=== PATIENT | male | born 1970 | race Caucasian/White ===

== ENCOUNTER 2016-10-06 20:03 | Emergency (ER) | payer OTHER ==
[2016-10-06 20:07] VITALS: BP 104/41; PULSE 61; RESP 18; O2SAT 99
--- NOTE | 2016-10-06 21:16 | ED.REPORT ---
HPI-Back Pain 40 and Over Date of Service October 06, 2016 ED Provider: Patient is a 46 year old male who presents to [facility] ED via EMS accompanied by his mother and son c/o sudden onset of lower back pain onset 2 hours ago. Patient states he has been working on his motorcycle tonight and was pushing it when he felt cramping left sided lower lumbar back pain. He describes pain as severe at that time, 10/10, without radiation. He went home and waited for about half hour but pain did not subside so his mother called 911. Patient states he had never had pain like this before. He denies numbness, weakness, loss of sensation, nausea, vomiting, urinary retention, saddle paresthesia, loss of bowel function. His current pain is 2/10. Nursing Notes Stated Complaint: BACK PAIN Chief Complaint: Back Pain or Injury Nursing Notes Reviewed: Yes Allergies: Coded Allergies: amoxicillin (Verified Allergy, Severe, Elevated ALT,ASC and rash, 08/20/14) Scheduled PRN Naproxen (Naproxen) 500 Mg Tab 500 MG PO BID PRN PRN For Pain oxyCODONE-Acetaminophen 5-325 mg (oxyCODONE-Acetaminophen 5-325 mg) 1 Each Tablet 1 TAB PO Q6H PRN PRN For Pain General Time Seen by MD: 21:16 Chief Complaint Back pain, Muscle spasm Hx Obtained From: Patient Arrived By: Ambulance Sudden in Onset?: Yes Onset Occurred: 1 - 4 hours ago Symptom Duration: Intermittent Caused by: Bending Location: : Flank left Quality: Cramping Radiation: : Does not radiate Severity: Current: Pain level 2 out of 10 (during physical exam) Severity: Maximum: Pain level 10 out of 10 (at onset) Recent Healthcare: No recent doctor visit Past Medical History PTSD Past Medical History PTSD Anxiety Past Surgical History hand surgery Smoking History Current Every Day Smoker Social History Drug Use: Meth (once, 3 days ago) Other Social History: Good social support, Lives with parents (mother), Lives with children (son) Occupation lives with . Ambulatory Status Independent Review of Systems Basic Review of Systems Eyes: Vision NL ENT: Hearing NL Constitutional: Denies: Lethargy, Malaise, Weakness - generalized Respiratory: Denies: Dyspnea on exertion, Wheezing Cardiovascular: Denies: Chest pain, Edema, Syncope GI: Denies: Constipation, Diarrhea, Nausea, Vomiting Male: Reports Flank pain (Left), Denies Dysuria, Denies Incontinence, Denies Urinary frequency, Denies Urinary urgency, Denies Urination decreased, Denies Urination increased Musculoskeletal: Reports: Back pain (Left lower lumbar area), Lumbar pain (left ), Denies: Extremity pain, Extremity swelling, Joint pain, Joint swelling, Myalgia, Neck pain, Thoracic pain Neurologic: Denies: Abnormal movement, Bladder dysfunction, Bowel dysfunction, Change LOC, Confusion, Dizziness, Focal weakness, Lightheaded, Numbness, Problem walking Physical Exam Initial Vital Signs Vital Signs (First) Date Time Temp Pulse Resp B/P Pulse Ox O2 Delivery O2 Flow Rate FiO2 10/06/16 20:07 61 18 104/41 99 Room Air Initial VS: Reviewed, Vital signs normal Head / Eyes: Atraumatic, Normocephalic, PERRL ENT: Mucous membranes moist, Conjunctiva normal, No scleral icterus Neck: Supple, Non-tender, Full range of motion Lymphatic: No lymphadenopathy Extremities: Vascular intact, Neuro intact, No swelling, No tenderness Skin: Warm, Dry, No cyanosis Psychiatric: Mood/affect normal, Behavior normal, Normal thought content Respiratory / Chest: Atraumatic, Breath sounds = bilat, No respiratory distress Cardiovascular: Regular rhythm, No murmurs Abdomen: Atraumatic, Non-tender, No guarding, No rebound Back: Atraumatic, Full range of motion Flank / Spine / Paraspinal: Positive: Lumbar paraspinal tend... (Mid) Neurologic: Oriented X3, Speech NL, No motor deficits, No sensory deficits, Reflexes equal bilat, Gait NL Re-Eval/Medical Decision Med Decision/Clinical Course In summary, this is a 46 year old male who presents with acute onset of lower lumbar back pain while pushing his motorcycle. Based on history and physical exam, patient most likely had a muscle sprain/ strain. No signs suggestive of myelopathy. Patient's pain decreased from 10/10 to 2/10 within 32-3 hours. Patient refused Dexamethasone IM shot, but agreed to take Percocet, 5-325mg, 1 tab. At this point, we feel patient is safe to be discharged home. He will receive a prescription for Percocet and Naproxen. He received instructions to call [facility] and schedule a follow up appointment within 2 weeks. Re-Evaluation/Progress : Time of Eval: 23:18 Patient Status: Condition improved, Pain improved Counseled Regarding: Diagnosis, Need for follow-up, When/why to return to ED Discharge & Departure Impression: Primary Impression: Acute low back pain Back pain laterality: left Sciatica presence: without sciatica Qualified Code: M54.5 - Low back pain Additional Impression: Muscle spasm Disposition: Home Discharge Condition All VS Reviewed: Yes Condition: Stable Patient Instructions: Low Back Strain (ED), Acute Low Back Pain (ED) Additional Instructions: Thank you for seeking care at emergency room today. Your physical exam is reassuring ! It seems to us that you have an acute low back muscle sprain/strain. You may be hurting for a few days, but eventually you should start feeling better soon. We are sending you home with a prescription for pain medication. Please take it as directed. We would like you to establish care with a primary care provider and have a follow up appointment within a week or two. You can call [facility] at [phone], address [address] [place] [address]. Please return to emergency room immediately if you develop new symptoms or if your pain worsens. Thank you for letting us partake in your care today. Referrals: Ella Curiel DO (PCP) EDSupervising Provider for APC: Jamie Lindsey DO Attending Statement I personally took a history of performed a physical examination and concur with the note above. Jamie Lindsey DO October 06, 2016 21:16 Roshni Natarajan DO October 06, 2016 22:31
[2016-10-06] MEDS ORDERED: Dexamethasone 10 mg/mL Inj IM ONE (22:00)
[2016-10-06] MEDS ORDERED: oxyCODONE-Acetamin 5-325 mg Tablet PO ONE (22:05)
[2016-10-06] MEDS ORDERED: OXYC1TAB24 PO (22:33)
[2016-10-06] MEDS ORDERED: NPR500T PO (22:35)
[2016-10-06 23:36] VITALS: BP 103/56; PULSE 90; RESP 16; O2SAT 96
== END 2016-10-06 23:37 | disposition home or self-care (01) ==
LOC: SED 20:03
DX: M54.5 Low back pain (principal); M62.830 Muscle spasm of back; X50.9XXA Other and unspecified overexertion or strenuous movements or postures, initial encounter; Y93.89 Activity, other specified; Y92.89 Other specified places as the place of occurrence of the external cause; Y99.8 Other external cause status; F17.200 Nicotine dependence, unspecified, uncomplicated; Z88.1 Allergy status to other antibiotic agents